=== PATIENT | female | born 1975 | race Caucasian/White ===

== ENCOUNTER → 2016-11-25 | Outpatient (CLI) | payer OTHER ==
[~2016-11-25] MED LIST: DIAZEPAM 10 MG TABLET. ONE; IOHEXOL 300 MG/ML 100ML VIAL. ONE; IV NORMAL SALINE 500ML BAG 500 ML ONE; LIDOCAINE 1% Multi-Dose 20 ML VIAL. ONE; MIDAZOLAM HCL/PF 2 MG/2 ML VIAL. ONE; fentaNYL PF VIAL 100 MCG/2 ML VIAL ONE
--- NOTE | 2016-11-25 16:04 | PCVCIMAG ---
APPROVED REPORT Study performed: 11/25/2016 14:32:44 EXAM: Comprehensive 2D, Doppler, and color-flow Echocardiogram Patient Location: Echo lab Room #: 3Status: routine BSA: 1.64 HR: 45 bpmBP: 92/60 mmHg Rhythm: Bradycardia Indications Check cardiac function and rt side filling pressure 2D Dimensions LVEF(%): 64.57 (>50%) IVSd: 6.10 (7-11mm)LVOT Diam: 22.46 (18-24mm) LVDd: 49.78 mm PWd: 5.85 (7-11mm)Ascending Ao: 33.47 (22-36mm) LVDs: 32.16 (25-40mm) Left Atrium: 26.10 (27-40mm) Aortic Root: 30.90 mm LV Single Plane 4CH: 57.06 % LV Single Plane 2CH: 63.92 %[place]'s LVEF: 60.49 % Biplane EF: 60.7 % Volumes Left Atrial Volume (Systole) Single Plane 4CH: 28.43 mLSingle Plane 2CH: 27.04 mL Biplane LA Volume: 31.00 mLLA ESV Index: 19.00 mL/m2 Aortic Valve AoV Peak Gordy.: 1.07 m/s AO Peak Gr.: 4.58 mmHgLVOT Max P.46 mmHg LVOT Max V: 0.78 m/s CED Vmax: 2.90 cm2 Mitral Valve E/A Ratio: 2.9 MV Decel. Time: 91.80 ms MV E Max Gordy.: 0.86 m/s MV A Gordy.: 0.30 m/s MV PHT: 26.62 ms IVRT: 96.89 ms TDI E/Lateral E': 6.62E/Medial E': 7.82 Medial E' Gordy.: 0.11 m/s Lateral E' Gordy.: 0.13 m/s Pulmonary Valve PV Peak Gordy.: 0.68 m/sPV Peak Gr.: 1.86 mmHg Pulmonary Vein P Vein S: 0.54 m/sP Vein A: 0.25 m/s P Vein D: 0.64 m/sP Vein A Dur.: 96.9 msec P Vein S/D Ratio: 0.84 Tricuspid Valve TR Peak Gordy.: 2.20 m/s TR Peak Gr.: 19.33 mmHg TV Vmax: 0.61 m/sPA Pressure: 26.00 mmHg Left Ventricle The left ventricle is normal size. There is normal LV segmental wall motion. There is normal left ventricular wall thickness. Left ventricular systolic function is normal. The left ventricular ejection fraction is within the normal range. LVEF is 60-65%. The left ventricular diastolic function is normal. Right Ventricle The right ventricle is normal size. The right ventricular systolic function is normal. Atria The left atrium size is normal. The right atrium size is normal. Aortic Valve The aortic valve is normal in structure. No aortic regurgitation is present. There is no aortic valvular stenosis. Mitral Valve The mitral valve is normal in structure. No mitral regurgitation. No evidence of mitral valve stenosis. Tricuspid Valve The tricuspid valve is normal in structure. Mild to moderate tricuspid regurgitation qwith a PA pressure of 26mmHg.. Pulmonic Valve The pulmonary valve is normal in structure. There is no pulmonic valvular regurgitation. Great Vessels The aortic root is normal in size. IVC is upper limits of normal in size and collapses >50% with inspiration. Pericardium There is no pericardial effusion. <Conclusion> Left ventricular systolic function is normal. There is normal LV segmental wall motion. EF 65%. Normal diastolic function The aortic valve is normal in structure. No aortic regurgitation The mitral valve is normal in structure. No mitral regurgitation. Pulmonary artery pressure of 25mmHg There is no pericardial effusion.
--- NOTE | 2016-11-25 17:13 | PCVCINTER ---
EXAM: 1. INTRAVASCULAR ULTRASOUND OF THE INFERIOR VENA CAVA 2. INTRAVASCULAR ULTRASOUND OF THE RIGHT COMMON AND EXTERNAL ILIAC AND COMMON FEMORAL VEINS 3. INTRAVASCULAR ULTRASOUND OF THE LEFT COMMON AND EXTERNAL ILIAC AND COMMON FEMORAL VEINS 4. INFERIOR VENA CAVA AND BILATERAL ILIOFEMORAL VENOGRAPHY 5. BILATERAL RENAL VENOGRAPHY. INDICATION: Iliofemoral venous obstruction. Chronic Venous Insufficiency Class 4a. Leg pain and swelling. Failed conservative therapy including medical grade compression stockings for at least 3 months. Venous hypertension chronic. Pelvic pressure and pain raising concern for pelvic congestion syndrome. PROCEDURE: Procedure and risks of IVC and ileofemoral venography and intravascular ultrasound, and venous stent placement as appropriate including bleeding, infection, venous thrombosis, stent migration/thrombosis, contrast-induced nephropathy requiring dialysis, stroke, and were discussed with the patient and consent obtained. Patient was given IV antibiotics. The patient's right neck and chest was prepped and draped in the normal sterile fashion. IV conscious sedation was used throughout the procedure with appropriate monitoring. Ultrasound was used to interrogate the neck and showed the internal jugular vein to be patent. A spot ultrasound image of the internal jugular vein was saved. Under ultrasound guidance access into the right internal jugular vein was obtained and an 8F sheath was placed to the level of the lower IVC. Catheter was placed into the lower IVC and IVC cavogram performed. Catheter was placed to the level of the right common femoral vein and right iliofemoral venogram obtained. Catheter was placed to the level of the left common femoral vein and left iliofemoral venogram was obtained. The 8 Turkmen intravascular ultrasound catheter was then placed to the level of the right common femoral vein and intravascular ultrasound evaluation of the right common femoral, right external iliac, and right common iliac veins was accomplished in a pull-back fashion. The 8 Turkmen intravascular ultrasound catheter was then placed to the level of the left common femoral vein and intravascular ultrasound evaluation of the left common femoral, left external iliac, and left common iliac veins was accomplished in a pull-back fashion. Intravascular ultrasound evaluation of the inferior vena cava was then accomplished in a pullback fashion. Catheter was placed into the right renal vein and right renal venogram was performed. Catheter was placed into the left renal vein and left renal venogram performed. Sheath was removed and hemostasis obtained using manual pressure. FINDINGS: IVC INTRAVASCULAR ULTRASOUND: Normal vessel: 15.0 x 21.7 mm. Area = 250.8 sq. mm. RIGHT COMMON ILIAC VEIN INTRAVASCULAR ULTRASOUND: Normal vessel: 7.3 x 13.6 mm. Area = 76.7 sq. mm. RIGHT EXTERNAL ILIAC VEIN INTRAVASCULAR ULTRASOUND: Normal vessel: 8.6 x 13.0 mm. Area = 89.2 sq. mm. RIGHT COMMON FEMORAL VEIN INTRAVASCULAR ULTRASOUND: Normal vessel: 5.5 x 13.3 mm. Area = 69.4 sq. mm. LEFT COMMON ILIAC VEIN INTRAVASCULAR ULTRASOUND: Normal vessel: 6.7 x 15.8 mm. Area = 85.4 sq. mm. LEFT EXTERNAL ILIAC VEIN INTRAVASCULAR ULTRASOUND: Normal vessel: 8.3 x 14.5 mm. Area = 98.1 sq. mm. LEFT COMMON FEMORAL VEIN INTRAVASCULAR ULTRASOUND: Normal vessel: 6.4 x 13.5 mm. Area = 72.8 sq. mm. VENOGRAPHY: INFERIOR VENA CAVA: Vessel is patent without significant stenosis, scarring, or extrinsic compression. RIGHT COMMON ILIAC VEIN: Vessel is patent without significant stenosis, scarring, or extrinsic compression. RIGHT EXTERNAL ILIAC VEIN: Vessel is patent without significant stenosis, scarring, or extrinsic compression. RIGHT COMMON FEMORAL VEIN: Vessel is patent without significant stenosis, scarring, or extrinsic compression. LEFT COMMON ILIAC VEIN: Vessel is patent without significant stenosis, scarring, or extrinsic compression. LEFT EXTERNAL ILIAC VEIN: Vessel is patent without significant stenosis, scarring, or extrinsic compression. LEFT COMMON FEMORAL VEIN: Vessel is patent without significant stenosis, scarring, or extrinsic compression. RIGHT RENAL VENOGRAM: The renal vein is patent without abnormal reflux seen. LEFT RENAL VENOGRAM: The left renal vein is patent with no evidence of abnormal reflux. Specifically left gonadal vein is not identified. IMPRESSION: Intravascular ultrasound and venographic evaluation of the inferior vena cava and the common and external iliac and common femoral veins bilaterally is within normal limits. No evidence of significant venous obstruction is identified. LOC:[id number]
== END | disposition home or self-care (01) ==
LOC: PCVCINTER 11:35
PROVIDERS: ATTEND Nuclear Medicine Nuclear Cardiology
DX: I07.1 Rheumatic tricuspid insufficiency (principal); I87.2 Venous insufficiency (chronic) (peripheral); I87.309 Chronic venous hypertension (idiopathic) without complications of unspecified lower extremity
CPT/HCPCS: 36011; 36012; 37252; 37253; 75822; 75825; 76937; 93306; 99152; 99153; C1751; C1753; C1769; C1894; J1644; J2250; J3010; J7040; Q9967